=== PATIENT | male | born 1975 | race Caucasian/White ===

== ENCOUNTER 2022-07-15 12:32 | Day surgery (SDC) | payer BC, OTHER ==
[2022-07-15] MEDS ORDERED: BUPIVACAINE 0.5% VIAL IJ ONE (12:33)
[2022-07-15] MEDS ORDERED: DIPRIVAN 200 MG/20 ML IV ONE (14:48)
--- NOTE | 2022-07-15 16:23 | XRAY ---
Indication: Bilateral L4-S1 MBB. Intraoperative fluoroscopy provided for 15 seconds. Single digital spot image submitted for interpretation demonstrates posterior needle tips projecting over the expected left and right L4-S1 nerve roots. Correlate with intraoperative findings/report.
--- NOTE | 2022-07-15 16:25 | XRAY ---
15 seconds fluoroscopy time in surgery for bilateral L4-S1 MBB.
== END 2022-07-15 15:25 | disposition home or self-care (01) ==
LOC: SDC-PAIN 12:32
PROVIDERS: ATTEND Psychiatry & Neurology Pain Medicine
DX: M47.816 Spondylosis without myelopathy or radiculopathy, lumbar region (principal); Z79.899 Other long term (current) drug therapy
CPT/HCPCS: 64493; 64494; 72020; 77002; J2704

== ENCOUNTER 2022-09-22 12:39 | Day surgery (SDC) | payer BC, OTHER ==
[2022-09-22] MEDS ORDERED: LIDOCAINE HCL 1% 50 MG/5 ML VL PF IJ ONE (12:40)
[2022-09-22] MEDS ORDERED: BUPIVACAINE 0.5% VIAL IJ ONE (12:40)
[2022-09-22] MEDS ORDERED: Depo-Medrol 40 MG/ML IM ONE (12:40)
[2022-09-22] MEDS ORDERED: DIPRIVAN 200 MG/20 ML IV ONE (15:26)
--- NOTE | 2022-09-22 16:18 | XRAY ---
Indication: Left L4-S1 RFA. Intraoperative fluoroscopy provided for 27 seconds. 3 digital spot image submitted for interpretation demonstrates posterior needle tips projecting over the expected left L4-S1 nerve roots. Correlate with intraoperative findings/report.
[2022-09-22] MEDS ORDERED: Lactated Ringers 1,000 ML IV ONE (16:34)
--- NOTE | 2022-09-22 16:36 | XRAY ---
27 seconds of fluoroscopy was used in surgery for a left L4-S1 RFA.
== END 2022-09-22 16:05 | disposition home or self-care (01) ==
LOC: SDC-PAIN 12:39
PROVIDERS: ATTEND Psychiatry & Neurology Pain Medicine
DX: M47.816 Spondylosis without myelopathy or radiculopathy, lumbar region (principal); Z79.899 Other long term (current) drug therapy
CPT/HCPCS: 64635; 64636; 72100; 77002; J1030; J2001; J2704

== ENCOUNTER 2022-09-29 11:54 | Day surgery (SDC) | payer BC, OTHER ==
[2022-09-29] MEDS ORDERED: BUPIVACAINE 0.5% VIAL IJ ONE (11:55)
[2022-09-29] MEDS ORDERED: LIDOCAINE HCL 1% 50 MG/5 ML VL PF IJ ONE (11:55)
[2022-09-29] MEDS ORDERED: Depo-Medrol 40 MG/ML IM ONE (11:55)
[2022-09-29] MEDS ORDERED: DIPRIVAN 200 MG/20 ML IV ONE ×2 (15:12→15:22)
[2022-09-29] MEDS ORDERED: Lactated Ringers 1,000 ML IV ONE (15:57)
--- NOTE | 2022-09-29 16:50 | XRAY ---
Indication: Right L4-S1 RFA. Intraoperative fluoroscopy provided for 25 seconds. 2 digital spot image submitted for interpretation demonstrates posterior needle tips projecting over the expected right L4-S1 nerve roots. Correlate with intraoperative findings/report.
--- NOTE | 2022-09-30 08:39 | XRAY ---
25 seconds of fluoroscopy was used in surgery for a right L4-S1 RFA.
== END 2022-09-29 15:51 | disposition home or self-care (01) ==
LOC: SDC-PAIN 11:54
PROVIDERS: ATTEND Psychiatry & Neurology Pain Medicine
DX: M47.816 Spondylosis without myelopathy or radiculopathy, lumbar region (principal); Z79.899 Other long term (current) drug therapy
CPT/HCPCS: 64635; 64636; 72100; 77002; J1030; J2001; J2704

== ENCOUNTER 2023-07-13 15:49 | Day surgery (SDC) | payer BC ==
[2023-07-13] MEDS ORDERED: Depo-Medrol 40 MG/ML IM ONE (15:50)
[2023-07-13] MEDS ORDERED: BUPIVACAINE 0.5% VIAL IJ ONE (15:50)
[2023-07-13] MEDS ORDERED: XYLOCAINE-MPF 1% 5ML SDV IJ ONE (15:50)
--- NOTE | 2023-07-13 19:24 | XRAY ---
Indication: Bilateral SI joint injection. Intraoperative fluoroscopy provided for 16 seconds. 5 digital spot image submitted for interpretation demonstrates posterior needle tip projecting over left and right SI joint. Correlate with intraoperative findings/report.
--- NOTE | 2023-07-14 08:59 | XRAY ---
16 seconds of fluoroscopy was used in surgery for a bilateral sacroiliac joint injection.
== END 2023-07-13 18:18 | disposition home or self-care (01) ==
LOC: SDC-PAIN 15:49
PROVIDERS: ATTEND Psychiatry & Neurology Pain Medicine
DX: M46.1 Sacroiliitis, not elsewhere classified (principal)
CPT/HCPCS: 27096; 72202; 77002; J1030; G0260

== ENCOUNTER 2023-08-14 15:52 | Emergency (ER) | payer BC ==
--- NOTE | 2023-08-14 16:05 | ERPHSYRPT ---
- History of Present Illness Time Seen by Provider: 08/14/23 16:02 Source: patient, family Exam Limitations: no limitations Physician History: pt with cough and fever and ST, swallowing OK in ER , no SObreath or CP, NO N or V, No abd pain. chest clear Ht reg without M. Discussed risks/benefits with pt and family of testing Strep, Covid, Flu, RSV and they wish to proceed. These are ordered. Results discussed/ Pt also has diarrhea past 2 days which may be related, and has nausea. abd is soft and nontender without peritoneal signs, distension or masses. Hx independently confirmed from family in ER as separate source. Timing/Duration: today Cough Quality/Degree: dry cough Possible Cause: no prior episodes Modifying Factors: Improves With: coughing Associated Symptoms: fever, cough, muscle aches, nasal congestion, sore throat Allergies/Adverse Reactions: No Known Drug Allergies Allergy (Verified 08/14/23 16:18) - Review of Systems Constitutional: Fever, No Chills Eyes: No Symptoms Ears, Nose, & Throat: Nose Congestion, Nose Discharge Respiratory: Cough, No Dyspnea Cardiac: No Chest Pain, No Edema, No Syncope Abdominal/Gastrointestinal: Nausea, Diarrhea, No Abdominal Pain, No Vomiting Genitourinary Symptoms: No Dysuria Musculoskeletal: Myalgias, No Back Pain, No Neck Pain Skin: No Symptoms, No Rash Neurological: No Dizziness, No Focal Weakness, No Sensory Changes Psychological: No Symptoms Endocrine: No Symptoms Hematologic/Lymphatic: No Symptoms Immunological/Allergic: No Symptoms All Other Systems: Reviewed and Negative - Past Medical History Pertinent Past Medical History: Yes Respiratory History: Asthma - Nursing Vital Signs Nursing Vital Signs: Initial Vital Signs Temperature 99.4 F 08/14/23 16:19 Pulse Rate 96 H 08/14/23 16:19 Respiratory Rate 20 08/14/23 16:19 Blood Pressure 173/79 08/14/23 16:19 O2 Sat by Pulse Oximetry 97 08/14/23 16:19 Pain Scale Pain Intensity 8 - Physical Exam General Appearance: no apparent distress, alert Eye Exam: PERRL/EOMI, eyes nml inspection Ears, Nose, Throat Exam: normal ENT inspection, TMs normal, moist mucous membranes, pharyngeal erythema Neck Exam: normal inspection, non-tender, supple, full range of motion Respiratory Exam: normal breath sounds, lungs clear, airway intact, No respiratory distress, No accessory muscle use, No crackles/rales, No rhonchi, No wheezing, No stridor Cardiovascular Exam: regular rate/rhythm, normal heart sounds Gastrointestinal/Abdomen Exam: soft, No tenderness, No distention, No mass, No guarding Rectal Exam: deferred Back Exam: normal inspection, No CVA tenderness, No vertebral tenderness Extremity Exam: normal inspection, normal range of motion Neurologic Exam: alert, oriented x 3, cooperative, normal mood/affect, sensation nml, No motor deficits Skin Exam: normal color, warm, dry, No rash Lymphatic Exam: No adenopathy SpO2 Interpretation: normal SpO2: 97 O2 Delivery: Room Air - Course Nursing assessment & vital signs reviewed: Yes Ordered Tests: Medication Summary Discontinued Medications Generic Name Dose Route Start Last Admin Trade Name [place]q PRN Reason Stop Dose Admin Cyclobenzaprine HCl 10 mg 08/14/23 18:13 08/14/23 18:26 Cyclobenzaprine Hcl 10 Mg Tablet PO 08/14/23 18:14 10 mg STAT ONE Administration Cyclobenzaprine HCl Confirm 08/14/23 18:24 Cyclobenzaprine Hcl 10 Mg Tablet Administered 08/14/23 18:25 Dose 10 mg .ROUTE .STK-MED ONE Oseltamivir Phosphate 75 mg 08/14/23 19:10 08/14/23 19:13 Oseltamivir 75 Mg Cap PO 08/14/23 19:11 75 mg STAT ONE Administration Oseltamivir Phosphate Confirm 08/14/23 19:13 Oseltamivir 75 Mg Cap Administered 08/14/23 19:14 Dose 75 mg PO .STK-MED ONE Oxycodone/Acetaminophen 1 tab 08/14/23 18:12 08/14/23 18:26 Oxycodone / Apap 10/325 Mg 1 Tablet PO 08/14/23 18:13 1 tab STAT STA Administration Oxycodone/Acetaminophen Confirm 08/14/23 18:24 Oxycodone / Apap 10/325 Mg 1 Tablet Administered 08/14/23 18:25 Dose 1 tab .ROUTE .STK-MED ONE Lab/Rad Data: Laboratory Results 08/14/23 Range/Units 16:30 Influenza Type A Ag POSITIVE (NEGATIVE) Influenza Type B Ag NEGATIVE (NEGATIVE) RSV (PCR) NEGATIVE (NEGATIVE) SARS-CoV-2 (PCR) NEGATIVE (NEGATIVE) Group A Strep Antibody NOT DETECTED (NEGATIVE) - Progress Progress: improved, re-examined Air Movement: good Progress Note: 08/14/23 19:39 pt improved after pain med and muscle relaxant in ER and fluids PO jesus well. discussed risks/benefits of tamiflu and or admission and pt and spouse and they all wish outpt tx rather than further eval or admission and have the capacity to make this choice. Blood Culture(s) Obtained: No Antibiotics given: No Counseled pt/family regarding: lab results, diagnosis, need for follow-up Medical Desision Making - Independent Historian Additional History obtained from: Spouse - Discussion of managment Reviewed:: Test results, Need for additional workup Agreed on:: Treatment plan, need for follow-up - Diagnostic Testing Diagnostic test were ordered, analyzed, and reviewed by me: Yes Radiological Interpretation: Reviewed by me - Risk of complications The pt has a mod risk of morbidity or mortality based on: Need for prescription drug management - Departure Departure Disposition: Home Clinical Impression: Influenza A Condition: Good Critical Care Time: No Referrals: HI WALKER [Primary Care Provider] - Follow up/PCP as directed Additional Instructions: followup with your Dr this week and continue to take lots of fluids - and your tamiflu twice a day for 5 days. return meantime if not improving, short of breath, trouble swallowing, vomiting, stomach pains, or any other concerns. followup your blood pressure with your Dr. as well as it was a little high. Prescriptions: Oseltamivir 75 mg [Tamiflu 75MG Capsule] 75 mg PO BID 5 Days #10 cap
[2023-08-14 16:24] VITALS: BP 173/79; PULSE 96; RESP 20; TEMP 99.4; O2SAT 97
[2023-08-14 17:12] LABS: Group A Strep NOT DETECTED (NEGATIVE)
[2023-08-14 17:21] LABS: INFLUENZA B NEGATIVE (NEGATIVE); RESPIRATORY SYNCTIAL VIRUS NEGATIVE (NEGATIVE); SARS-CoV-2 Xpert Express NEGATIVE (NEGATIVE)
[2023-08-14 17:26] LABS: INFLUENZA A POSITIVE (NEGATIVE)
[2023-08-14] MEDS ORDERED: OXYCODONE-ACETAMINOPHEN 10-325 PO STA (18:12)
[2023-08-14] MEDS ORDERED: Cyclobenzaprine 10 MG PO ONE (18:13)
[2023-08-14] MEDS ORDERED: Cyclobenzaprine 10 MG ONE (18:24)
[2023-08-14] MEDS ORDERED: OXYCODONE-ACETAMINOPHEN 10-325 ONE (18:24)
[2023-08-14] MEDS ORDERED: Tamiflu 75MG Capsule PO ONE ×2 (19:10→19:13)
== END 2023-08-14 19:56 | disposition home or self-care (01) ==
LOC: ED 15:52
DX: J10.1 Influenza due to other identified influenza virus with other respiratory manifestations (principal); R50.9 Fever, unspecified; R05.9 Cough, unspecified; R19.7 Diarrhea, unspecified; R11.0 Nausea
CPT/HCPCS: 0241U; 87651; 99283; A9270-GY

== ENCOUNTER 2023-10-05 11:23 | Emergency (ER) | payer BC ==
--- NOTE | 2023-10-05 11:30 | ERPHSYRPT ---
- History of Present Illness Time Seen by Provider: 10/05/23 11:30 Historian: patient Exam Limitations: no limitations Physician History: This is a 48-year-old white male patient of Dr. Walter Walker and presents with rectal bleeding and rectal pain/pressure that began yesterday. Patient states that he has had some intermittent lower abdominal pain for the last few weeks. He denies weight loss. He had no nausea vomiting or diarrhea symptoms. He has not had any cough. He has not had a fever. He denies chest pain and he denies shortness of breath. Patient had similar issue approximately year and a half ago and underwent an upper and lower endoscopy. He used the term ulcerations. It is unclear to me whether this is upper or lower intestinal "ulcerations". Patient was at work today and became concerned because there was both dark blood followed by a few drops of bright red blood rectally in the toilet. He has no known documented history of bleeding or clotting disorders, liver disease, hemorrhoids or intestinal cancers. He now admits to only consuming 6 beers a week. However, he did say that in the past he used to drink alcohol quite a bit. Patient has no known drug allergies and he takes no medications chronically Timing/Duration: yesterday Activities at Onset: none Quality: pressure (Lower abdomen) Abdominal Pain Onset Location: generalized abdomen (Mild lower abdominal discomfort with palpation) Severity of Pain-Max: mild Severity of Pain-Current: mild Modifying Factors: Improves With: nothing Associated Symptoms: No chest pain, No loss of appetite, No nausea, No shortness of breath, No vomiting, No weakness Previous symptoms: same symptoms as today, no recent treatment Allergies/Adverse Reactions: No Known Drug Allergies Allergy (Verified 10/05/23 11:45) Home Medications: No Reportable Medications [No Reported Medications] 10/05/23 [History] Hx Tetanus, Diphtheria Vaccination/Date Given: Yes Hx Influenza Vaccination/Date Given: No Hx Pneumococcal Vaccination/Date Given: No Travel Risk - International Travel Have you traveled outside of the country in past 3 weeks: No - Coronavirus Screening Are you exhibiting any of the following symptoms?: No Close contact with a COVID-19 positive Pt in past 14-21 Days: No - Vaccine Status Have you recieved a Covid-19 vaccination: No - Review of Systems Constitutional: No Symptoms Eyes: No Symptoms Ears, Nose, & Throat: No Symptoms Respiratory: No Symptoms Cardiac: No Symptoms Abdominal/Gastrointestinal: Abdominal Pain, Hematochezia, Melena Genitourinary Symptoms: No Symptoms Musculoskeletal: No Symptoms Skin: No Symptoms Neurological: No Symptoms Psychological: No Symptoms Endocrine: No Symptoms Hematologic/Lymphatic: No Symptoms Immunological/Allergic: No Symptoms All Other Systems: Reviewed and Negative - Past Medical History Pertinent Past Medical History: Yes Respiratory History: Asthma - Past Surgical History Past Surgical History: Yes Other Surgical History: Toe reattachement - Social History Smoking Status: Never smoker Exposure to second hand smoke: No Drug Use: none Patient Lives Alone: No - Nursing Vital Signs Nursing Vital Signs: Initial Vital Signs O2 Sat by Pulse Oximetry 99 10/05/23 11:42 Pain Scale Pain Intensity 5 - Physical Exam General Appearance: no apparent distress, alert, anxiety Eye Exam: PERRL/EOMI, eyes nml inspection Ears, Nose, Throat Exam: normal ENT inspection, moist mucous membranes Neck Exam: normal inspection, non-tender, supple, full range of motion Respiratory Exam: normal breath sounds, lungs clear, airway intact, No chest tenderness, No respiratory distress Cardiovascular Exam: regular rate/rhythm, normal heart sounds, normal peripheral pulses Gastrointestinal/Abdomen Exam: soft, normal bowel sounds, tenderness (Mild), No guarding ( bilateral lower quadrants to palpation), No rebound Rectal Exam: not done Back Exam: normal inspection, normal range of motion, No CVA tenderness, No vertebral tenderness Extremity Exam: normal inspection, normal range of motion, pelvis stable Neurologic Exam: alert, oriented x 3, cooperative, bank examiner II-XII nml as tested, normal mood/affect, nml cerebellar function, nml station & gait, sensation nml Skin Exam: normal color, warm, dry Lymphatic Exam: No adenopathy SpO2 Interpretation: normal O2 Delivery: Room Air - Course Nursing assessment & vital signs reviewed: Yes Ordered Tests: Active Orders 24 hr Category Date Time Status IV Insertion STAT Care 10/05/23 13:16 Active ABDOMEN AND PELVIS W/0 CONTRAS [CT] Stat Exams 10/05/23 13:15 Completed AMYLASE Stat Lab 10/05/23 13:32 Completed CBC W DIFF Stat Lab 10/05/23 13:32 Completed CMP Stat Lab 10/05/23 13:32 Completed LIPASE Stat Lab 10/05/23 13:32 Completed PROTIME WITH INR Stat Lab 10/05/23 13:32 Completed Lab/Rad Data: Laboratory Result Diagrams 10/05/23 13:32 10/05/23 13:32 Laboratory Results 10/05/23 10/05/23 10/05/23 Range/Units 13:32 13:32 13:32 WBC 6.5 (4.0-10.5) x10^3/uL RBC 4.71 (4.1-5.6) x10^6/uL Hgb 14.9 (12.5-18.0) g/dL Hct 43.2 (42-50) % MCV 91.7 (78-100) fL MCH 31.6 (26-32) pg MCHC 34.5 (32-36) g/dL RDW 12.4 (11.5-14.0) % Plt Count 251 (150-450) x10^3/uL MPV 8.6 (7.5-11.0) fL Gran % 50.5 (36.0-66.0) % Immature Gran % (Auto) 0.5 H (0.00-0.4) % Nucleat RBC Rel Count 0.0 (0.00-0.1) % Eos # (Auto) 0.22 (0-0.5) x10^3/uL Immature Gran # (Auto) 0.03 (0.00-0.03) x10^3u/L Absolute Lymphs (auto) 2.20 (1.0-4.6) x10^3/uL Absolute Monos (auto) 0.71 (0.0-1.3) x10^3/uL Absolute Nucleated RBC 0.00 (0.00-0.01) x10^3u/L Lymphocytes % 33.8 (24.0-44.0) % Monocytes % 10.9 (0.0-12.0) % Eosinophils % 3.4 (0.00-5.0) % Basophils % 0.9 (0.0-0.4) % Absolute Granulocytes 3.29 (1.4-6.9) x10^3/uL Basophils # 0.06 (0-0.4) x10^3/uL PT 10.3 (9.4-12.5) SECONDS INR 0.94 (0.8-3.0) Sodium 141 (135-145) mmol/L Potassium 3.9 (3.5-5.1) mmol/L Chloride 108 H (98-107) mmol/L Carbon Dioxide 26 (22-30) mmol/L Anion Gap 10.9 (5-15) MEQ/L BUN 16 (9-20) mg/dL Creatinine 1.08 (0.66-1.25) mg/dL Estimated GFR 85.7 ML/MIN Glucose 111 H (74-106) mg/dL Calcium 8.6 (8.4-10.2) mg/dL Total Bilirubin 0.30 (0.2-1.3) mg/dL AST 26 (17-59) U/L ALT 31 (0-50) U/L Alkaline Phosphatase 48 (38-126) U/L Serum Total Protein 6.8 (6.3-8.2) g/dL Albumin 4.0 (3.5-5.0) g/dL Amylase 87 (30-110) U/L Lipase 135 (23-300) U/L - Progress Progress: unchanged, re-examined Progress Note: 10/05/23 13:35 This patient medical issue is 1 of moderate complexity. The level complex in the workup performed based on review of the patient's past medical history, review the patient's medication list, review the patient drug allergy list, history of present illness and physical findings on examination. The workup in this patient includes IV line placement, CBC, CMP, PT/INR, amylase, lipase, urinalysis and CT scan of the abdomen pelvis without contrast. 10/05/23 13:37 Differential diagnosis includes internal hemorrhoids, bleeding disorder, liver disease, intestinal mass, intestinal ulcerations, inflammatory bowel disease 10/05/23 15:00 I interpreted the patient's laboratory data results. There is no evidence of acute, emergent medical issue based on the laboratory data. CT scan of the abdomen pelvis without contrast was interpreted by the radiologist and I reviewed the impression. The impression states there are bi lateral lower lobe, indeterminate, noncalcified micronodules. (Follow-up CT recommended). This was discussed with the patient prior to discharge. There is mild diffuse fecal stasis. There is normal appendix. None contrasted stomach and bowel show no acute abnormality. Counseled pt/family regarding: lab results, diagnosis, need for follow-up, rad results Medical Desision Making - Diagnostic Testing Diagnostic test were ordered, analyzed, and reviewed by me: Yes Radiological Interpretation: Reviewed by me, Teleradiologist Report - Risk of complications Low Risk: Low risk of morbidity from additional dx testing or treatment - Departure Departure Disposition: Home Clinical Impression: Rectal bleeding, Rectal pain, Pulmonary nodules Condition: Stable Critical Care Time: No Referrals: HI WALKER [Primary Care Provider] - Follow up/PCP as directed Additional Instructions: Drink plenty of fluids. Increase fiber in your diet. Contact your primary care provider and medical laboratory technologist today, 10/05/2023, to make arranges for further evaluation and management including arranging for repeat upper and lower endoscopy if indicated. May use sitz bath with warm soapy water or warm Epsom salts 2-3 times a day.
[2023-10-05 11:53] VITALS: TEMP 98
[2023-10-05 13:35] LABS: Absolute Neutrophil Ct (ANC) 3.29 x10^3/uL (1.4-6.9); BASOPHIL % 0.9 % (0.0-0.4); Basophil (Absolute #) 0.06 x10^3/uL (0-0.4); Eosinophil % 3.4 % (0.00-5.0); Eosinophil (Absolute #) 0.22 x10^3/uL (0-0.5); Hematocrit 43.2 % (42-50); Hemoglobin 14.9 g/dL (12.5-18.0); IMMATURE GRAN # 0.03 x10^3u/L (0.00-0.03); IMMATURE GRAN % 0.5 % (0.00-0.4); Lymphocytes % 33.8 % (24.0-44.0); Mean Cell Volume 91.7 fL (78-100); Mean Corpuscular Hemoglobin 31.6 pg (26-32); Mean Corpuscular Hgb Concent. 34.5 g/dL (32-36); Mean Platelet Volume 8.6 fL (7.5-11.0); Monocyte (Absolute #) 0.71 x10^3/uL (0.0-1.3); Monocytes % 10.9 % (0.0-12.0); Neutrophil % 50.5 % (36.0-66.0); Platelet Count 251 x10^3/uL (150-450); Red Blood Count 4.71 x10^6/uL (4.1-5.6); Red Cell Distribution Width 12.4 % (11.5-14.0); White Blood Count 6.5 x10^3/uL (4.0-10.5)
[2023-10-05 13:47] LABS: ANION GAP 10.9 MEQ/L (5-15); BILIRUBIN,TOTAL 0.3 mg/dL (0.2-1.3); Calcium 8.6 mg/dL (8.4-10.2); Creatinine 1 1.08 mg/dL (0.66-1.25); EST GLOMERULAR FILTRATION RATE 85.7 ML/MIN; Potassium 3.9 mmol/L (3.5-5.1); Total Protein 6.8 g/dL (6.3-8.2)
[2023-10-05 13:48] LABS: INR 0.94 (0.8-3.0); PROTIME 10.3 SECONDS (9.4-12.5)
--- NOTE | 2023-10-05 14:48 | XRAY ---
Indication: Abdominal/rectal pain. Rectal bleeding. Multiple contiguous axial images obtained through the abdomen and pelvis without contrast. Comparison: None Lung bases demonstrate two 5-6 mm [id number] left lower lobe subpleural noncalcified nodules. Additional 5 mm and also 6 mm right lung base noncalcified nodules. Heart not enlarged. Noncontrasted stomach and bowel loops appear nonobstructed with normal appendix. Mild scattered colonic fecal debris greatest in hemicolon. Mild diffuse fatty liver. No free fluid/air. Remaining liver, gallbladder, pancreas, spleen, adrenal glands, kidneys, ureters, bladder, and aorta are unremarkable for noncontrast exam. Osseous structures intact with L5-S1 broad-based disc bulge. Small fatty left inguinal hernia. Impression: 1. Bilateral lower lobe indeterminate noncalcified micronodules. Outside comparison studies recommended if available. If not, baseline CT chest with follow-up per Fleischner guidelines recommend. 2. Mild diffuse fecal stasis. 3. Chronic findings including fatty liver, L5-S1 degenerative disc disease, and fatty left inguinal hernia.
[2023-10-05 15:56] VITALS: BP 110/72; PULSE 75; RESP 21; O2SAT 98
== END 2023-10-05 15:45 | disposition home or self-care (01) ==
LOC: ED 11:23
DX: K62.5 Hemorrhage of anus and rectum (principal); K62.89 Other specified diseases of anus and rectum; R91.8 Other nonspecific abnormal finding of lung field; Z20.828 Contact with and (suspected) exposure to other viral communicable diseases
CPT/HCPCS: 36000; 36415; 74176; 80053; 82150; 83690; 85025; 85610; 99284

== ENCOUNTER 2023-11-30 13:43 | Day surgery (SDC) | payer BC ==
[2023-11-30] MEDS ORDERED: Depo-Medrol 40 MG/ML IM ONE (13:44)
[2023-11-30] MEDS ORDERED: BUPIVACAINE 0.5% VIAL IJ ONE (13:44)
[2023-11-30] MEDS ORDERED: BENADRYL 50 MG/ML ONE (15:44)
[2023-11-30] MEDS ORDERED: Lactated Ringers 1,000 ML IV ONE (15:53)
[2023-11-30] MEDS ORDERED: DIPRIVAN 200 MG/20 ML IV ONE (16:00)
[2023-11-30] MEDS ORDERED: Xylocaine-Mpf 2% 5 Ml Vial ONE (16:01)
--- NOTE | 2023-11-30 17:10 | XRAY ---
Indication: Right SI joint injection. Intraoperative fluoroscopy provided for 10 seconds. Single digital spot image submitted for interpretation demonstrates posterior needle tip projecting over right SI joint. Small amount of contrast injected for needle tip placement. Correlate with intraoperative findings/report.
--- NOTE | 2023-12-01 14:46 | XRAY ---
10 seconds of fluoroscopy was used in surgery for a right sacroiliac joint injection.
== END 2023-11-30 16:30 | disposition home or self-care (01) ==
LOC: SDC-PAIN 13:43
PROVIDERS: ATTEND Psychiatry & Neurology Pain Medicine
DX: M46.1 Sacroiliitis, not elsewhere classified (principal)
CPT/HCPCS: 27096; 72170; 77002; J1010; J1200; J2704; Q9966; G0260